=== PATIENT | male | born 1965 | race African-American/Black ===

== ENCOUNTER 2017-05-12 11:42 | Inpatient (IN) | payer OTHER ==
[~2017-05-12] VITALS: Ht 172.7 cm; Wt 117.9 kg
[2017-05-12 12:10] LABS: PLATELET COUNT 287 x10^3mcL (130-400)
[2017-05-12 12:19] LABS: CALCIUM 8.5 mg/dL (8.5-10.1); CARBON DIOXIDE 25.8 mmol/L (21-32); CHLORIDE SERUM 106 mmol/L (98-107); CREATININE SERUM 1.2 mg/dL (0.7-1.3); GFR1 > 60 mL/min; GLUCOSE SERUM 98 mg/dL (74-106); POTASSIUM SERUM 3.7 mmol/L (3.5-5.1); SODIUM SERUM 142 mmol/L (136-145)
[2017-05-12 12:24] LABS: ALBUMIN 3.6 g/dL (3.4-5.0); ALKALINE PHOSPHATASE 43 U/L (46-116); ALT/SGPT 21 U/L (16-63); AST/SGOT 16 U/L (15-37); BILIRUBIN TOTAL 0.94 mg/dL (0.20-1.00); TOTAL PROTEIN, SERUM 7.8 g/dL (6.4-8.2)
[2017-05-12 12:29] LABS: MONOCYTE 5 % (0-7); SEGMENTED NEUTROPHILS 69 % (37-75); rbc morphology (normal/abnorm) NORMAL (NORMAL)
[2017-05-12 16:04] LABS: CHOLESTEROL/HDL RATIO 4.8; MAGNESIUM 2.1 mg/dL (1.8-2.4); PHOSPHOROUS 3.3 mg/dL (2.5-4.9)
[2017-05-12 16:12] VITALS: BP 141/101
[2017-05-12 16:14] LABS: FREE T4 0.84 ng/dL (0.76-1.46); FREE THYROXINE INDEX 2.4 ug/dL (1.4-4.5); T4(THYROXINE) 7.4 ug/dL (4.7-13.3)
[2017-05-12 16:21] LABS: T3 TOTAL 1.21 ng/mL
[2017-05-12 22:00] VITALS: BP 129/91
[2017-05-13 05:49] LABS: BASOPHIL % 0.4 % (0-2); PLATELET COUNT 275 x10^3mcL (130-400)
[2017-05-13 05:52] LABS: microscopic required? NO
[2017-05-13 05:55] VITALS: BP 112/88
[2017-05-13 06:22] LABS: CALCIUM 8.5 mg/dL (8.5-10.1); CARBON DIOXIDE 25.8 mmol/L (21-32); CHLORIDE SERUM 105 mmol/L (98-107); CREATININE SERUM 1.2 mg/dL (0.7-1.3); GFR1 > 60 mL/min; GLUCOSE SERUM 107 mg/dL (74-106); MAGNESIUM 2.2 mg/dL (1.8-2.4); PHOSPHOROUS 3.8 mg/dL (2.5-4.9); POTASSIUM SERUM 3.6 mmol/L (3.5-5.1); SODIUM SERUM 139 mmol/L (136-145)
[2017-05-13 07:53] LABS: AMPHETAMINE QUAL UR NONE DETECTED (NEG <=1000)
[2017-05-13 09:44] LABS: urine erythrocyte NEGATIVE (NEGATIVE)
[2017-05-13 10:11] VITALS: BP 143/90
[2017-05-13 13:20] VITALS: BP 136/93
[2017-05-13 18:59] VITALS: Ht 172.7 cm; Wt 117.9 kg
[2017-05-13 21:17] VITALS: BP 127/83
[2017-05-14 06:26] VITALS: BP 135/91
[2017-05-14] MEDS ORDERED: LIPI10 PO (10:02)
[2017-05-14] MEDS ORDERED: ECO81 PO (10:03)
[2017-05-14] MEDS ORDERED: IBUPROFEN400 MG PO (10:05)
[2017-05-14] MEDS ORDERED: VENTOLIN H0.09 MG/A1 INH (10:11)
[2017-05-14 10:27] VITALS: BP 135/91
== END 2017-05-14 10:50 | disposition home or self-care (01) | DRG 203 ==
LOC: ED 11:42 → DU 14:55
PROVIDERS: ADMIT Family Medicine
DX: M94.0 Chondrocostal junction syndrome [Tietze] (principal); I16.0 Hypertensive urgency; N28.89 Other specified disorders of kidney and ureter; E66.9 Obesity, unspecified; F12.90 Cannabis use, unspecified, uncomplicated; Z68.39 Body mass index [BMI] 39.0-39.9, adult
CPT/HCPCS: 36600; 83880; 84439; G0480; J1170; J2405; J7030; Q0092; Q9967